=== PATIENT | male | born 1950 | race Caucasian/White ===

== ENCOUNTER 2020-11-30 09:37 | Emergency (ER) | payer MEDICARE ==
[~2020-11-30] VITALS: Ht 170.2 cm; Wt 74.8 kg
--- NOTE | 2020-11-30 09:45 | NUR ---
constipation x 1 week with urinary retention. Patient a/ox4,. breathing even and unlabored, no sob noted. Needs attended. Ambulatory with steady gait.
--- NOTE | 2020-11-30 09:52 | NUR ---
DR. SAMS AT BEDSIDE FOR EVAL.
[2020-11-30] MEDS ORDERED: MINERAL OIL 133 ML (PYXIS) 1 EA ENEMA RC ONE ×2 (09:58→10:00)
[2020-11-30] MEDS ORDERED: LACTULOSE 10 G/15 ML UDC (PYXIS) ONE (09:58)
[2020-11-30] MEDS ORDERED: LACTULOSE 10 G/15 ML UDC (PYXIS) PO ONE (10:00)
--- NOTE | 2020-11-30 10:10 | NUR ---
PATIENT WENT TO RESTROOM.
--- NOTE | 2020-11-30 10:40 | NUR ---
IV LINE ESTABLISHED, BLOOD DRAWN AND SENT TO LAB
--- NOTE | 2020-11-30 10:44 | NUR ---
patient unable to provide urine at this time.
--- NOTE | 2020-11-30 10:50 | NUR ---
LEARNING AND DEVELOPMENT ANALYST AT BEDSIDE FOR XRAY.
[2020-11-30 10:56] LABS: BASOPHILS # (AUTO) 0.1 K/uL (0.0-0.2); BASOPHILS % (AUTO) 0.6 % (0.0-2.0); EOSINOPHILS % (AUTO) 0.2 % (0.0-6.0); HEMATOCRIT 46 % (39-51); HEMOGLOBIN 15.1 g/dL (13.5-17.5); LYMPHOCYTES # (AUTO) 0.9 K/uL (0.8-4.8); LYMPHOCYTES % (AUTO) 7.8 % (20.0-44.0); MEAN CORPUSCULAR HGB CONC 33 g/dl (31.0-36.0); MEAN CORPUSCULAR VOLUME 101 fL (80-96); MONOCYTES # (AUTO) 1.1 K/uL (0.1-1.30); MONOCYTES % (AUTO) 9.6 % (2.0-12.0); NEUTROPHILS # (AUTO) 9.1 K/uL (1.8-8.9); NEUTROPHILS % (AUTO) 81.8 % (43.0-81.0); PLATELET COUNT (AUTO) 316 K/uL (150-450); WHITE BLOOD COUNT (AUTO) 11.1 K/uL (4.3-11.0)
[2020-11-30 11:04] LABS: CREATININE 1.1 mg/dL (0.6-1.3); POTASSIUM 3.5 mmol/L (3.5-5.1)
[2020-11-30 11:06] LABS: CALCIUM, SERUM 9.5 mg/dL (8.5-10.1)
--- NOTE | 2020-11-30 11:29 | NUR ---
PATIENT STS HE HAD A SUCCESFUL BOWEL MOVEMENT AND URINE. URINE SENT TO LAB.
[2020-11-30 11:43] LABS: BILIRUBIN,URINE Negative (NEGATIVE); COLOR,URINE YELLOW (YELLOW); LEUKOCYTE ESTERASE ,URINE Negative (NEGATIVE); NITRITE, URINE Negative (NEGATIVE); PH,URINE 6.5 (5.0-8.0); PROTEIN,URINE Negative (NEGATIVE); UGLUCOSE Negative (NEGATIVE); UROBILINOGEN,URINE 0.2 EU/dL (0.2)
--- NOTE | 2020-11-30 12:04 | NUR ---
Patient a/ox4, breathing even and unlabored, no sob noted. Ambulatory withs teady gait. No dsitress noted. IV removed. Catheter intact and site benign. Pressure and 4x4 applied to site. No bleeding noted. Patient discharged to home in stable condition. Written and verbal after care instructions given. Patient verbalizes understanding of instruction.
[2020-11-30 12:05] VITALS: BP 150/68
== END 2020-11-30 12:05 | disposition home or self-care (01) ==
LOC: ER 09:37
DX: R33.9 Retention of urine, unspecified (principal); R10.84 Generalized abdominal pain; K59.00 Constipation, unspecified; M06.9 Rheumatoid arthritis, unspecified; Z98.890 Other specified postprocedural states
CPT/HCPCS: 36415; 74021; 80048-TC; 85025-TC